=== PATIENT | male | born 1950 | race Caucasian/White ===

== ENCOUNTER 2017-11-21 16:43 | Emergency (ER) | payer OTHER ==
[~2017-11-21] VITALS: Ht 167.6 cm; Wt 76.7 kg
[2017-11-21] MEDS ORDERED: LOSARTAN POTAS100 MG (16:55)
[2017-11-21] MEDS ORDERED: ZOCOR40 MG (16:56)
[2017-11-21] MEDS ORDERED: NORVASC5 MG (16:57)
[2017-11-21] MEDS ORDERED: TAMS0.4C (16:58)
[2017-11-21] MEDS ORDERED: COREG 6.25 MG (16:58)
[2017-11-21] MEDS ORDERED: LUMIGAN2.5 M1 (16:59)
== END 2017-11-21 22:39 | disposition home or self-care (01) ==
LOC: ER 16:43
DX: N20.0 Calculus of kidney (principal); K57.90 Diverticulosis of intestine, part unspecified, without perforation or abscess without bleeding